=== PATIENT | female | born 1970 | race Caucasian/White ===

== ENCOUNTER → 2016-08-13 13:02 | Outpatient (CLI) | payer MEDICAID ==
[~2016-08-13 13:02] MED LIST: ESTRACE1 MG PO; LEVAQUIN500 MG PO; NEURONTIN 300300 MG PO; NORCO 7.5/325 T1 TA1 PO; OXYCODONE HCL5 MG PO; PROTONIX40 MG PO; VENTOLIN HFA18 GM INH; VOLTAREN75 MG PO
[2016-08-13 13:27] LABS: BASOPHILS 0.3 % (0.0-2.0); EOSINOPHILS 0.9 % (0-7); HEMATOCRIT 34.4 % (36.0-48.0); HEMOGLOBIN 10.9 g/dL (12-16); IMMATURE GRANULOCYTES 0.4 % (0-5); LYMPHOCYTES 27.9 % (15-50); MCH 21.2 pg (26.0-34.0); MCHC 31.7 g/dL (31.0-37.0); MCV 67.1 fL (80.0-100.0); MEAN PLATELET VOLUME 9.2 fL (7.4-10.4); MONOCYTES 4.9 % (2-11); NEUTROPHILS 65.6 % (40-80); PLATELET COUNT 319 10x3/uL (130-400); RBC 5.13 10x6/uL (4.00-5.40); WBC 9.3 10x3/uL (4.8-10.8)
[2016-08-13 13:40] LABS: ALBUMIN 3.6 g/dL (3.4-5.0); ALKALINE PHOSPHATASE 90 U/L (46-116); ALT (SGPT) 14 U/L (10-68); BILIRUBIN - DIRECT 0.08 mg/dL (0.00-0.30); BILIRUBIN - INDIRECT 0.42 mg/dL (0.00-1.00); CALC OSMOLALITY 273 mosm/kg (275-300); CALCIUM 8.7 mg/dL (8.5-10.1); CHLORIDE - SERUM 102 mmol/L (98-107); CREATININE - SERUM 0.7 mg/dL (0.6-1.3); GLUCOSE 84 mg/dL (74-106); PROTEIN - SERUM 7.6 g/dL (6.4-8.2); SODIUM 138 mmol/L (136-145); UREA NITROGEN 11 mg/dL (7-18); eGFR NON AFRICAN AMERICAN > 90 mL/min (90-120)
[2016-10-27 10:06] VITALS: BMI 30.1
== END | disposition home or self-care (01) ==
LOC: D.US 13:02
PROVIDERS: Surgery
DX: R10.11 Right upper quadrant pain (principal)

== ENCOUNTER 2016-08-19 07:50 | Day surgery (SDC) | payer MEDICAID ==
[~2016-08-19] VITALS: Ht 160 cm; Wt 75.3 kg
[~2016-08-19 07:50] MED LIST changes: -LEVAQUIN500 MG PO; -OXYCODONE HCL5 MG PO
[2016-08-19 08:27] VITALS: BP 109/63; Ht 160 cm; Wt 75.3 kg
[2016-08-19 08:50] LABS: HEMATOCRIT 34.3 % (36.0-48.0); HEMOGLOBIN 10.8 g/dL (12-16); MCHC 31.5 g/dL (31.0-37.0); MCV 66.6 fL (80.0-100.0); MEAN PLATELET VOLUME 9.5 fL (7.4-10.4); RBC 5.15 10x6/uL (4.00-5.40); RDW 15.1 % (11.5-14.5); WBC 8.3 10x3/uL (4.8-10.8)
[2016-08-19] MEDS ORDERED: OXYCODONE HCL5 MG PO (12:12)
--- NOTE | 2016-08-19 14:45 | NUR ---
IV IS OUT INTACT. DISCHARGE INSTRUCTIONS AND RX GIVEN, DISCHARGED HOME VIA WC.
--- NOTE | 2016-08-20 08:23 | OP ---
PATIENT NAME: PHIL AARON MEDICAL RECORD: [id number] :72 LOCATION:D[facility] ADMISSION DATE: SURGEON: HEMANT TEJADA MD DATE OF OPERATION: 08/19/2016 SURGEON: Hemant Tejada MD. PREOPERATIVE DIAGNOSES: 1. Right upper quadrant pain. 2. Symptomatic cholelithiasis. POSTOPERATIVE DIAGNOSES: 1. Right upper quadrant pain. 2. Symptomatic cholelithiasis. PROCEDURE PERFORMED: Laparoscopic cholecystectomy. ANESTHESIA: General. COMPLICATIONS: None. SPECIMENS: Gallbladder. Case is clean contaminated. ESTIMATED BLOOD LOSS: 75 cc. OPERATIVE COURSE: After consent was obtained, the patient was taken to the operating room and placed in supine position on the operating table. Next, general anesthesia was given via endotracheal intubation after a timeout was performed that confirmed the correct patient and procedure. The abdomen was prepped and draped in typical sterile fashion. Local anesthetic was injected just above the umbilicus. A stab incision was made with 11-blade scalpel. Using a 5-mm bladeless optical trocar, the abdomen was entered under direct laparoscopic vision. Adequate pneumoperitoneum was achieved. The abdominal cavity was inspected. No evidence of bowel injury. No evidence of bleeding. The patient was then placed in the steep reverse Trendelenburg position. All additional trocars were then placed after the administration of local anesthetic under direct laparoscopic vision, two 5-mm trocars in the right upper quadrant and an 11-mm trocar in the subxiphoid position. The fundus of the gallbladder was grasped and retracted cephalad. The infundibulum was grasped and retracted laterally. The peritoneum was incised using electrocautery. Blunt dissection was then performed until the critical view was obtained, the cystic duct lateral, cystic artery medial, liver in the posterior window. Two clips were placed in the proximal cystic artery, 1 clip distal. The artery was transected with laparoscopic Metzenbaum scissors. Three clips were placed in the proximal cystic duct, 1 clip distal. The duct was then transected with the laparoscopic Metzenbaum scissors. The posterior artery was identified. A single clip was placed in the posterior cystic artery and it was ligated with laparoscopic Metzenbaum scissors. The remaining portion of the gallbladder was then dissected off the liver bed using electrocautery. Once complete, it was grasped with the tenaculum and removed through the 11 mm trocar and sent for permanent pathology. Adequate hemostasis was obtained of the liver bed using a combination of electrocautery and Julieth powder. The abdominal cavity was then copiously irrigated and suctioned. Careful attention paid to hemostasis. Clips OPERATIVE REPORT [id number] PHIL AARON were inspected. There were [address] in the duct and ____, 1 clip placed in the posterior cystic artery. There was no evidence of bowel injury. No evidence of bleeding. No evidence of bile leak. The remaining portion of the abdominal cavity was inspected. No evidence of bleeding. No bowel injury. At this time, all remaining instruments were removed. The abdomen was desufflated. Trocars removed. The skin was closed with 4-0 Monocryl, Mastisol and Steri-Strips. At the end of the case, all needle counts were correct. No complications occurred. The patient was transferred to recovery room in satisfactory condition. TRANSINT:[id number] Voice Confirmation ID: [id number] DOCUMENT ID: [id number] HEMANT TEJADA MD at 0823 CC: [id number] DICTATION DATE: 08/19/16 1218 [facility]ILN DRAWER: 08/19/161914 [facility] 08/19/16 [facility] [address] [place] [address]
== END 2016-08-19 14:45 | disposition home or self-care (01) ==
LOC: D.OPS 07:50 → D.PAN 10:30 → D.OPS 10:30
PROVIDERS: Anesthesiology
DX: K80.20 Calculus of gallbladder without cholecystitis without obstruction (principal)

== ENCOUNTER 2016-10-26 21:28 | Inpatient (IN) | payer MEDICAID ==
[~2016-10-26 21:28] MED LIST changes: +OXYCODONE HCL5 MG PO
[2016-10-27 00:07] LABS: BASOPHILS 0.1 % (0-2); EOSINOPHILS 0.2 % (0-7); HEMOGLOBIN 10.6 g/dL (12-16); IMMATURE GRANULOCYTES 0.3 % (0-5); MCH 21.9 pg (26.0-34.0); MCHC 32.1 g/dL (31.0-37.0); MEAN PLATELET VOLUME 9.4 fL (7.4-10.4); MONOCYTES 5.5 % (2-11); NEUTROPHILS 81.9 % (40-80); PLATELET COUNT 343 10x3/uL (130-400); RBC 4.85 10x6/uL (4.00-5.40); RDW 16.5 % (11.5-14.5); WBC 14.9 10x3/uL (4.8-10.8)
[2016-10-27 00:28] LABS: CALC OSMOLALITY 277 mosm/kg (275-300); CALCIUM 8.7 mg/dL (8.5-10.1); CARBON DIOXIDE 23.5 mmol/L (21.0-32.0); CHLORIDE - SERUM 103 mmol/L (98-107); CREATININE - SERUM 0.6 mg/dL (0.6-1.3); GLUCOSE 97 mg/dL (74-106); POTASSIUM - SERUM 3.4 mmol/L (3.5-5.1); SODIUM 139 mmol/L (136-145); UREA NITROGEN 13 mg/dL (7-18); eGFR NON AFRICAN AMERICAN > 90 mL/min (90-120)
[2016-10-27 00:30] LABS: INR 1.23 (0.85-1.17); PROTIME 15.4 SECONDS (11.6-15.0)
[2016-10-27 00:31] LABS: APTT 34.2 SECONDS (22.8-39.4)
[2016-10-28 06:26] LABS: BASOPHILS 0.1 % (0-2); EOSINOPHILS 0.5 % (0-7); HEMATOCRIT 29.5 % (36.0-48.0); HEMOGLOBIN 9.3 g/dL (12-16); IMMATURE GRANULOCYTES 0.3 % (0-5); LYMPHOCYTES 18.8 % (15-50); MCH 21.4 pg (26.0-34.0); MCHC 31.5 g/dL (31.0-37.0); MCV 67.8 fL (80.0-100.0); MEAN PLATELET VOLUME 9.8 fL (7.4-10.4); MONOCYTES 6.7 % (2-11); NEUTROPHILS 73.6 % (40-80); PLATELET COUNT 348 10x3/uL (130-400); RBC 4.35 10x6/uL (4.00-5.40); RDW 16.2 % (11.5-14.5)
[2016-10-28 06:28] LABS: WBC 7.8 10x3/uL (4.8-10.8)
[2016-10-28 06:42] LABS: CALC OSMOLALITY 283 mosm/kg (275-300); CALCIUM 8.4 mg/dL (8.5-10.1); CHLORIDE - SERUM 108 mmol/L (98-107); CREATININE - SERUM 0.5 mg/dL (0.6-1.3); GLUCOSE 104 mg/dL (74-106); MAGNESIUM - SERUM 2.3 mg/dL (1.8-2.4); POTASSIUM - SERUM 3.7 mmol/L (3.5-5.1); SODIUM 143 mmol/L (136-145); eGFR NON AFRICAN AMERICAN > 90 mL/min (90-120)
[2016-10-28 06:43] LABS: UREA NITROGEN 9 mg/dL (7-18)
[2016-10-30] MEDS ORDERED: LEVAQUIN500 MG PO (12:29)
== END 2016-10-30 14:15 | disposition home or self-care (01) | DRG 394 ==
LOC: D.WS 21:28
PROVIDERS: ADMIT Surgery
PROC: 0F9430Z Drainage of Gallbladder with Drainage Device, Percutaneous Approach (ICD-10-PCS; 2016-10-27)
PROC: BF101ZZ Fluoroscopy of Bile Ducts using Low Osmolar Contrast (ICD-10-PCS; principal; 2016-10-30)
PROC: 0F798DZ Dilation of Common Bile Duct with Intraluminal Device, Via Natural or Artificial Opening Endoscopic (ICD-10-PCS; principal; 2016-10-30)
DX: K91.89 Other postprocedural complications and disorders of digestive system (principal); F11.20 Opioid dependence, uncomplicated; Y83.8 Other surgical procedures as the cause of abnormal reaction of the patient, or of later complication, without mention of misadventure at the time of the procedure; J45.909 Unspecified asthma, uncomplicated; F17.200 Nicotine dependence, unspecified, uncomplicated

== ENCOUNTER → 2016-12-21 07:10 | Outpatient (CLI) | payer MEDICAID ==
[2016-10-27 10:06] VITALS: BMI 30.1
[~2016-12-21 07:10] MED LIST changes: +LEVAQUIN500 MG PO
[2016-12-21 08:44] LABS: ALBUMIN 3.4 g/dL (3.4-5.0); BILIRUBIN - DIRECT 0.06 mg/dL (0.00-0.30); BILIRUBIN - INDIRECT 0.26 mg/dL (0.00-1.00); BILIRUBIN - TOTAL 0.32 mg/dL (0.2-1.3); PROTEIN - SERUM 7.9 g/dL (6.4-8.2)
== END | disposition home or self-care (01) ==
LOC: D.US 07:10
PROVIDERS: Internal Medicine Gastroenterology
DX: R10.11 Right upper quadrant pain (principal)

== ENCOUNTER → 2017-01-06 07:59 | Day surgery (SDC) | payer MEDICAID ==
[~2017-01-06] VITALS: Ht 160 cm; Wt 75.0 kg
[2017-01-06 08:52] LABS: BASOPHILS 0.2 % (0-2); EOSINOPHILS 1.6 % (0-7); HEMATOCRIT 35.9 % (36.0-48.0); HEMOGLOBIN 11.3 g/dL (12-16); IMMATURE GRANULOCYTES 0.3 % (0-5); LYMPHOCYTES 21.7 % (15-50); MCH 21.6 pg (26.0-34.0); MCHC 31.5 g/dL (31.0-37.0); MCV 68.8 fL (80.0-100.0); MEAN PLATELET VOLUME 9.8 fL (7.4-10.4); MONOCYTES 4.9 % (2-11); NEUTROPHILS 71.3 % (40-80); PLATELET COUNT 383 10x3/uL (130-400); RBC 5.22 10x6/uL (4.00-5.40); RDW 16.2 % (11.5-14.5); WBC 10.5 10x3/uL (4.8-10.8)
[2017-01-06 08:59] VITALS: BP 111/69; Ht 160 cm; Wt 75.0 kg
[2017-01-06 09:03] LABS: CALC OSMOLALITY 286 mosm/kg (275-300); CARBON DIOXIDE 29.5 mmol/L (21.0-32.0); CHLORIDE - SERUM 107 mmol/L (98-107); CREATININE - SERUM 0.8 mg/dL (0.6-1.3); GLUCOSE 89 mg/dL (74-106); POTASSIUM - SERUM 3.4 mmol/L (3.5-5.1); SODIUM 145 mmol/L (136-145); UREA NITROGEN 9 mg/dL (7-18); eGFR NON AFRICAN AMERICAN 82 mL/min (90-120)
== END | disposition home or self-care (01) ==
LOC: D.OPS 07:59
PROVIDERS: Anesthesiology
DX: K91.89 Other postprocedural complications and disorders of digestive system (principal); F17.200 Nicotine dependence, unspecified, uncomplicated; J45.909 Unspecified asthma, uncomplicated